=== PATIENT | male | born 1995 | race Two or more races ===

== ENCOUNTER 2020-10-15 11:37 | Emergency (ER) | payer MEDICAID, OTHER ==
[~2020-10-15] VITALS: Ht 172.7 cm; Wt 105.2 kg
[2020-10-15 11:56] VITALS: BP 137/88
[2020-10-15] MEDS ORDERED: FLUORESCEIN SOD 1 MG TEST STRIP OP ONE (13:00)
[2020-10-15] MEDS ORDERED: TETRACAINE HCL 0.5% OPTH(EYE) SOLN 4ML EACHEYE ONE (13:00)
== END 2020-10-15 15:08 | disposition home or self-care (01) ==
LOC: ER 11:37
DX: H10.31 Unspecified acute conjunctivitis, right eye (principal)

== ENCOUNTER 2025-08-04 17:59 | Emergency (ER) | payer MEDICAID ==
[~2025-08-04] VITALS: Ht 177.8 cm; Wt 100.0 kg
[2025-08-04 18:03] VITALS: BP 132/79; PULSE 101; RESP 18; TEMP 97.9; O2SAT 95
== END 2025-08-04 21:16 | disposition left against medical advice (07) ==
LOC: ER 18:02
DX: S61.511A Laceration without foreign body of right wrist, initial encounter (principal); S61.411A Laceration without foreign body of right hand, initial encounter; W19.XXXA Unspecified fall, initial encounter; Y93.89 Activity, other specified; Y92.89 Other specified places as the place of occurrence of the external cause; Y99.8 Other external cause status